=== PATIENT | female | born 1970 | race Caucasian/White ===

== ENCOUNTER → 2021-01-19 11:10 | Outpatient (CLI) | payer OTHER, SELFPAY ==
--- NOTE | ~2021-01-19 | CT_ITS ---
EXAMINATION: CTA chest PE protocol DATE: 01/19/2021 11:39 INDICATION: Dyspnea TECHNIQUE: Computed tomography angiography (CTA) of the chest was performed with 100 mL Omnipaque-350 intravenous contrast timed to evaluate the pulmonary arteries. Coronal maximum intensity projection 3D-reconstructions were created by the technologist. Automated exposure control and iterative reconst ruction technique were employed. Exam dose: 438.20 mGy-cm total exam DLP. COMPARISON: None. FINDINGS: There is diagnostic contrast enhancement of the pulmonary arteries and no evidence of pulmo nary embolism. No thoracic aortic aneurysm or dissection. Normal heart size. No hilar or mediastinal mass lesion or lymphadenopathy. No pericardial or pleural effusion. Normal morphology of the adrenal glands. Small sliding hiatal hernia. No pulmonary infiltrate or consolidation or pulmonary mass lesion. IMPRESSION: No evidence of pulmonary embolism Reviewed, dictated and finalized at [facility]. Reviewed, dictated and finalized at location [facility]. 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
[2021-01-19 11:29] LABS: Estimated Glomerular Filt Rate 59
== END ==
PROVIDERS: PCP Physician Assistant; Visit Provider Physician Assistant
DX: R06.00 Dyspnea, unspecified (principal)
CPT/HCPCS: 71275; Q9967

== ENCOUNTER → 2021-03-15 10:21 | Outpatient (CLI) | payer OTHER, SELFPAY ==
--- NOTE | ~2021-03-15 | MMUS_ITS ---
EXAMINATION: MM diagnostic prince BI w anaya, US breast LT limited HISTORY: Follow-up left breast mass TECHNIQUE: Additional 3-D tomosynthesis images of the breasts were performed and synthetic 2-D images were generated. CAD analysis was submitted and interpreted. High resolution limited left breast ultr asound was performed. COMPARISON: 11/12/2019 BREAST PARENCHYMAL COMPOSITION: Breast composed of scattered areas of fibroglandular density. FINDINGS: MAMMOGRAPHIC FINDINGS: There is a circumscribed mass in the lower outer quadrant of the left breast measuring 1 cm greatest dimension. There are no suspicious calcifications or architectural distortion. No mammographic eviden ce for malignancy in the right breast. ULTRASOUND: Limited left breast ultrasound: At 4:00, 4 cm from the nipple, there is an oval hypoechoic mass with circumscribed margins, parallel orientation, no significant posterior features measuring 11 x 7 x 7 m m, unchanged from prior study. IMPRESSION: 1. Stable benign-appearing left breast mass located at 4:00, 4 cm from the nipple measuring 11 mm max imum dimension. 2. Recommend 6 month follow-up targeted left breast ultrasound BI-RADS category 3, probably benign findings. Reviewed, dictated and finalized at location A. IMPRESSION: 1. Stable benign-appearing left breast mass located at 4:00, 4 cm from the nipp le measuring 11 mm maximum dimension. 2. Recommend 6 month follow-up targeted left breast ultrasound BI-RADS category 3, probably benign findings.
== END ==
PROVIDERS: PCP Physician Assistant; Visit Provider Physician Assistant
DX: D24.2 Benign neoplasm of left breast (principal); R92.8 Other abnormal and inconclusive findings on diagnostic imaging of breast
CPT/HCPCS: 76642; 77062; 77066; G0279

== ENCOUNTER → 2023-11-18 14:15 | Outpatient (CLI) | payer OTHER, SELFPAY ==
--- NOTE | ~2023-11-18 | MMUS_ITS ---
EXAMINATION: MM diagnostic prince BI w anaya, US breast LT limited HISTORY: 4:00 left breast mass reported on March 15, 2020 diagnostic left mammogram and limited left breast ultrasound TECHNIQUE: Bilateral ML, MLO and CC and spot left MLO and CC 3-D tomosynthesis images were performed and synthetic 2-D images were generated. CAD analysis was submitted and interpreted. High resolution targeted left 4:00 breast ultrasound was performed. COMPARISON: March 15, 2021 diagnostic left mammogram and limited left breast ultrasound 11/20/2019 diagnostic left mammogram and left breast ultrasound examination 11/12/2019 bilateral screening mammogram BREAST PARENCHYMAL COMPOSITION: There are scattered areas of fibroglandular density. FINDINGS: MAMMOGRAPHIC FINDINGS: There is an approximately 5.8 x 10 mm circumscribed opacity at mid to posterior depth in the lower ou ter quadrant left breast at approximately 4:00 position. This appears mammographically stable since A pril 2020. No suspicious mass, architectural distortion, malignant calcification, skin thickening or retraction of either breast is noted otherwise. ULTRASOUND: There is an approximately 8.7 x 6.4 x 13 mm parallel circumscribed hypoechoic lesion without internal vascularity or posterior shadowing at 4:00 4 cm from the nipple, stable or slightly increased in siz e since March 15, 2021 left breast ultrasound examination. IMPRESSION: 1. Benign finding similar 1 probable benign fibroadenoma, left breast, 4:00 2. Routine mammographic screening is recommended. BI-RADS Category 2: Benign finding(s). Reviewed, dictated and finalized at location A. 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 Benign finding similar 1 probable benign fibroadenoma, left breast, 4:00 2. Routine mammographic screening is recommended. BI-RADS Category 2: Benign finding(s).
== END ==
PROVIDERS: PCP Physician Assistant; Visit Provider Physician Assistant
DX: N60.02 Solitary cyst of left breast (principal); R92.8 Other abnormal and inconclusive findings on diagnostic imaging of breast
CPT/HCPCS: 76642; 77062; 77066; G0279

== ENCOUNTER 2024-09-07 01:13 | Day surgery (SDC) | payer OTHER, SELFPAY ==
[2024-08-18 13:09] VITALS: BMI 22.6
[2024-09-07 06:21] VITALS: BMI 22.6
[2024-09-07 06:25] VITALS: BP 129/80; PULSE 94; RESP 20; TEMP 35.8; O2SAT 100
--- NOTE | 2024-09-07 06:26 | SUR.PREOP ---
Pt's blood sugar 165 per dexcom
[2024-09-07] MEDS: LACTATED RINGERS 1,000 ML 150 ML IV CONT (06:36)
--- NOTE | 2024-09-07 06:47 | P.PNAN_ITS ---
Anes - Initial Pre Proc Eval Procedure: Operation Date: 09/07/24 07:30 Proposed Procedures p Screening Colonoscopy - Keven Fairbanks MD Date/Time: 09/07/24 06:47 Surgeon: Keven Fairbanks MD Pre Op Diagnosis: neoplasm screening Patient Data Age: 53 Gender: F Height: 1.63 m Weight: 60 kg Last Vital Signs Temp 35.8 C L 09/07/24 06:25 Pulse 94 09/07/24 06:25 Resp 20 09/07/24 06:25 BP 129/80 09/07/24 06:25 Pulse Ox 100 09/07/24 06:25 O2 Del Method Room Air 09/07/24 06:25 Allergies Allergy/AdvReac Type Severity Reaction Status Date / Time No Known Allergies Allergy Unknown Verified 09/07/24 06:20 Home Medications Medication Instructions Recorded Confirmed Type atorvastatin 10 mg tablet 10 mg PO DAILY 08/18/24 09/07/24 History insulin lispro 100 unit/mL 0.4 unit continuous subcutaneous 08/18/24 09/07/24 History subcutaneous solution (Humalog infusion DIRECTED U-100 Insulin) levothyroxine 100 mcg tablet 100 mcg PO DAILY 08/18/24 09/07/24 History lisinopril 5 mg tablet 5 mg PO DAILY 08/18/24 09/07/24 History tirzepatide 7.5 mg/0.5 mL 10 mg subcut WEEKLY 08/18/24 09/07/24 History subcutaneous pen injector (Mounjaro) Patient hx anesthesia problems: none Family hx anesthesia problems: none Results Review: All pre-operative results and documents have been reviewed as part of the pre- operative evaluation. [facility] Past Medical History Medical History (Updated 09/07/24 @ 06:47 by Jonah Wetzel MD) Diabetes Hypothyroidism Social History Social History Smoking status: Never smoker Alcohol intake: never Alcohol use details: Socially Substance use: never Substance use type: does not use Living arrangements: with family Spiritual care concerns: No Anes - Eval Final PreProcedure Day of Procedure 09/07/24 06:47 Patient weight: normal Heart: regular rate and rhythm Lungs: clear to auscultation Airway: Mallampati scale class II Neurological: alert and oriented Last oral intake: >/= 8 hours ASA classification: II Emergent: no Anesthetic plan: proceed Anesthesia type and monitoring: general GIVS and standard monitoring Results Review: All pre-operative results and documents have been reviewed as part of the pre- operative evaluation. Informed Consent: The patient's anesthetic plan and its attendant risks and benefits were discussed with the patient/family/POA. Questions were solicited and answers provided to the satisfaction of the patient/family/POA.
--- NOTE | 2024-09-07 07:17 | PM.HPGS ---
History of Present Illness History of Present Illness Consent: Risks, benefits, and alternatives have been discussed and questions answered. Patient agrees to proceed with procedure. Chief complaint: neoplasm screening Narrative: Lyndon Raymond is a 53 year old female here for colonoscopy, last one 6 years ago, brother had colon cancer Review of Systems Review of Systems: All systems reviewed & are unremarkable except as noted in HPI and below PMFSH Past Medical History Medical History (Updated 09/07/24 @ 07:18 by Keven Fairbanks MD) Diabetes Family history of colon cancer Hypothyroidism Social History Social History Smoking status: Never smoker Alcohol intake: never Alcohol use details: Socially Substance use: never Substance use type: does not use Living arrangements: with family Spiritual care concerns: No Meds Home Medications and Allergies Home Medications Medication Instructions Recorded Confirmed Type atorvastatin 10 mg tablet 10 mg PO DAILY 08/18/24 09/07/24 History insulin lispro 100 unit/mL 0.4 unit continuous subcutaneous 08/18/24 09/07/24 History subcutaneous solution (Humalog infusion DIRECTED U-100 Insulin) levothyroxine 100 mcg tablet 100 mcg PO DAILY 08/18/24 09/07/24 History lisinopril 5 mg tablet 5 mg PO DAILY 08/18/24 09/07/24 History tirzepatide 7.5 mg/0.5 mL 10 mg subcut WEEKLY 08/18/24 09/07/24 History subcutaneous pen injector (Mounjaro) Allergies Allergy/AdvReac Type Severity Reaction Status Date / Time No Known Allergies Allergy Unknown Verified 09/07/24 06:20 Vital Signs Vital Signs - 24 hr 09/07/24 06:25 Temperature 96.4 F L Pulse Rate 94 Respiratory Rate 20 Blood Pressure 129/80 Pulse Oximetry 100 Oxygen Delivery Room Air Exam Const: General: comfortable and no acute distress HENMT: Face/Nose/Sinus: Normal nares present Eyes: General: appearance normal, both eyes and all related structures Neck: Neck: no JVD Resp: Auscultation: clear to auscultation bilaterally Cardio: Rate: regular rate Rhythm: regular rhythm GI: Inspection: non-distended GI Palp: Yes Soft to palpation Skin: General skin exam: normal color Neuro: General: gait normal Speech: normal speech Extrem: General: normal to inspection Psych: Mental Status: mental status grossly normal Assessment and Plan Assessment and plan (1) Family history of colon cancer: Code(s): Z80.0 - Family history of malignant neoplasm of digestive organs Status: Acute Assessment and Plan: colonoscopy
[2024-09-07 07:46] VITALS: BP 105/51; PULSE 79; RESP 20; O2SAT 99
[2024-09-07 07:56] VITALS: BP 101/68; PULSE 74; RESP 18; O2SAT 100
[2024-09-07 08:06] VITALS: BP 109/70; PULSE 74; RESP 20; O2SAT 100
--- NOTE | 2024-09-07 08:16 | SUR.PHASEII ---
PT'S SUGAR PER DEXOM 123
== END 2024-09-07 08:16 | disposition home or self-care (01) ==
PROVIDERS: PCP Physician Assistant; Referring Provider Physician Assistant; Visit Provider Internal Medicine Gastroenterology
PROC: 0DJD8ZZ Inspection of Lower Intestinal Tract, Via Natural or Artificial Opening Endoscopic (ICD-10-PCS; CPT 45378; principal; 2024-09-07 07:30)
DX: Z12.11 Encounter for screening for malignant neoplasm of colon (principal); K64.8 Other hemorrhoids; E11.9 Type 2 diabetes mellitus without complications; E03.9 Hypothyroidism, unspecified; Z79.4 Long term (current) use of insulin; Z79.85 Long-term (current) use of injectable non-insulin antidiabetic drugs; Z80.0 Family history of malignant neoplasm of digestive organs
CPT/HCPCS: 45378; J2704; J7120

== ENCOUNTER 2025-08-05 01:15 | Day surgery (SDC) | payer OTHER, SELFPAY ==
[2025-07-27 14:27] VITALS: BMI 23.3
--- NOTE | 2025-08-05 09:22 | SUR.PREOP ---
Pt blood sugar 157 per continuous glucose monitor.
[2025-08-05 09:23] VITALS: BP 106/73; PULSE 67; RESP 18; TEMP 36.2; O2SAT 100
[2025-08-05] MEDS: LACTATED RINGERS 1,000 ML 150 ML IV CONT (09:36)
--- NOTE | 2025-08-05 09:42 | WPDANESEPPF ---
Anes - Initial Pre Proc Eval Procedure: Operation Date: 08/05/25 10:30 Proposed Procedures p Esophagogastroduodenoscopy - Keven Fairbanks MD Date/Time: 08/05/25 09:42 Surgeon: Keven Fairbanks MD Pre Op Diagnosis: Vitamin B12 deficiency anemia due to intrinsic fac Patient Data Age: 54 Gender: F Height: 1.63 m Weight: 62.9 kg Last Vital Signs Temp 97.1 F L 08/05/25 09:23 Pulse 67 08/05/25 09:23 Resp 18 08/05/25 09:23 BP 106/73 08/05/25 09:23 Pulse Ox 100 08/05/25 09:23 O2 Del Method Room Air 08/05/25 09:23 Allergies Allergy/AdvReac Type Severity Reaction Status Date / Time No Known Allergies Allergy Unknown Verified 08/05/25 09:22 Home Medications ?Medication ?Instructions ?Recorded ?Confirmed ?Type atorvastatin 10 mg tablet 10 mg PO DAILY 08/18/24 07/27/25 History insulin lispro 100 unit/mL 0.4 unit continuous subcutaneous 08/18/24 07/27/25 History subcutaneous solution (Humalog infusion DIRECTED U-100 Insulin) levothyroxine 100 mcg tablet 100 mcg PO DAILY 08/18/24 07/27/25 History lisinopril 5 mg tablet 5 mg PO DAILY 08/18/24 07/27/25 History tirzepatide 7.5 mg/0.5 mL 10 mg subcut WEEKLY 08/18/24 07/27/25 History subcutaneous pen injector (Mounjaro) estradiol 0.05 mg/24 hr semiweekly 1 patch transdermal 07/27/25 History transdermal patch Patient hx anesthesia problems: none Family hx anesthesia problems: none Results Review: All pre-operative results and documents have been reviewed as part of the pre-operative evaluation. [facility] Past Medical History Medical History (Updated 06/16/25 @ 15:59 by Keven Fairbanks MD) Pernicious anemia Family history of colon cancer Hypothyroidism Diabetes Social History Social History Smoking status: Never smoker Alcohol intake: never Substance use: never Substance use type: does not use Living arrangements: with family Spiritual care concerns: No Anes - Eval Final PreProcedure Day of Procedure 08/05/25 09:42 Patient weight: normal Heart: regular rate and rhythm Lungs: clear to auscultation Airway: Mallampati scale class II Neurological: alert and oriented Last oral intake: >/= 8 hours ASA classification: III Emergent: no Anesthetic plan: proceed Anesthesia type and monitoring: general GIVS and standard monitoring Results Review: All pre-operative results and documents have been reviewed as part of the pre-operative evaluation. Informed Consent: The patient's anesthetic plan and its attendant risks and benefits were discussed with the patient/family/POA. Questions were solicited and answers provided to the satisfaction of the patient/family/POA.
--- NOTE | 2025-08-05 09:55 | PM.HPGS ---
History of Present Illness History of Present Illness Consent: Risks, benefits, and alternatives have been discussed and questions answered. Patient agrees to proceed with procedure. 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, also noted to have chronic low B12, blood work suggestive of possible pernicious anemia (+ intrinsic factor but normal parietal cell ab) Review of Systems Review of Systems: All systems reviewed & are unremarkable except as noted in HPI and below PMFSH Past Medical History Medical History (Updated 06/16/25 @ 15:59 by Keven Fairbanks MD) Pernicious anemia Family history of colon cancer Hypothyroidism Diabetes Social History Social History Smoking status: Never smoker Alcohol intake: never Substance use: never Substance use type: does not use Living arrangements: with family Spiritual care concerns: No Meds Home Medications and Allergies Home Medications ?Medication ?Instructions ?Recorded ?Confirmed ?Type atorvastatin 10 mg tablet 10 mg PO DAILY 08/18/24 07/27/25 History insulin lispro 100 unit/mL 0.4 unit continuous subcutaneous 08/18/24 07/27/25 History subcutaneous solution (Humalog infusion DIRECTED U-100 Insulin) levothyroxine 100 mcg tablet 100 mcg PO DAILY 08/18/24 07/27/25 History lisinopril 5 mg tablet 5 mg PO DAILY 08/18/24 07/27/25 History tirzepatide 7.5 mg/0.5 mL 10 mg subcut WEEKLY 08/18/24 07/27/25 History subcutaneous pen injector (Mounjaro) estradiol 0.05 mg/24 hr semiweekly 1 patch transdermal 07/27/25 History transdermal patch Allergies Allergy/AdvReac Type Severity Reaction Status Date / Time No Known Allergies Allergy Unknown Verified 08/05/25 09:22 Vital Signs Vital Signs - 24 hr 08/05/25 09:23 Temperature 97.1 F L Pulse Rate 67 Respiratory Rate 18 Blood Pressure 106/73 Pulse Oximetry 100 Oxygen Delivery Room Air Exam Const: General: comfortable and no acute distress HENMT: Face/Nose/Sinus: Normal nares present Eyes: General: appearance normal, both eyes and all related structures Neck: Neck: no JVD Resp: Auscultation: clear to auscultation bilaterally Cardio: Rate: regular rate Rhythm: regular rhythm GI: Inspection: non-distended GI Palp: Yes Soft to palpation Skin: General skin exam: normal color Neuro: Speech: normal speech Extrem: General: normal to inspection Psych: Mental Status: mental status grossly normal Assessment and Plan Assessment and plan (1) Pernicious anemia: Code(s): D51.0 - Vitamin B12 deficiency anemia due to intrinsic factor deficiency Status: Acute Assessment and Plan: egd with bx
--- NOTE | 2025-08-05 10:04 | S_PTH ---
PATIENT: Lyndon Raymond LOC: [facility]#:[id number] AGE/SX: 54/F ROOM: RE08/05/[address]: Keven Fairbanks MD : 1970 BED: DIS: 08/05/2025 SPEC #: [id number] RECD: 08/05/25 10:32 STATUS: KAYLYN RENolan #: [id number] HOLDEN: 08/05/25 10:[address]: Keven Fairbanks DEPT: [facility] Surgical RECD BY: Christine Calvert ENTERED: 08/05/25 10:32 SP TYPE: Surgical OTHR DR: Marisa Mason, PA-C Tissues: A - Gastric Biopsy B - Small Bowel Bx Procedures: Hematoxylin and Eosin Stain Gross and Microscopic Level 4 Synaptoshysin Chromogranin Stain H.Pylori
[2025-08-05 10:06] VITALS: BP 89/54; PULSE 75; RESP 23; O2SAT 100
[2025-08-05 10:16] VITALS: BP 95/57; PULSE 75; RESP 23; O2SAT 99
[2025-08-05 10:26] VITALS: BP 105/69; PULSE 76; RESP 23; O2SAT 100
== END 2025-08-05 10:40 | disposition home or self-care (01) ==
PROVIDERS: PCP Physician Assistant; Referring Provider Internal Medicine Gastroenterology; Visit Provider Internal Medicine Gastroenterology
PROC: 0DJ08ZZ Inspection of Upper Intestinal Tract, Via Natural or Artificial Opening Endoscopic (ICD-10-PCS; CPT 43239; principal; 2025-08-05 10:30)
DX: D51.0 Vitamin B12 deficiency anemia due to intrinsic factor deficiency (principal); K29.40 Chronic atrophic gastritis without bleeding; E11.9 Type 2 diabetes mellitus without complications
CPT/HCPCS: 43239; 82948; 88305; 88342; J2003; J2704; J7120

== ENCOUNTER 2025-09-30 09:51 | Outpatient (CLI) | payer OTHER, SELFPAY ==
--- NOTE | ~2025-09-30 | US_ITS ---
US right upper quadrant Indication: Abn bilirubin test Comparison: None Technique: Friedman-scale and color Doppler images were obtained. Findings: LIVER: Unremarkable, liver contours intact, no lesions. Normal echogenicity. . GALLBLADDER/BILIARY: Post cholecystectomy. CBD 8 mm. Grover sign negative. PANCREAS: Pancreas limited by bowel gas. Right Kidney: Right kidney 9.8 cm, normal. Impression: No acute abnormality. Reviewed, dictated and finalized at location P. Impression: No acute abnormality.
== END 2025-09-30 09:52 | disposition home or self-care (01) ==
LOC: MICIMG 09:51
PROVIDERS: PCP Physician Assistant; Visit Provider Physician Assistant
DX: R79.89 Other specified abnormal findings of blood chemistry (principal)
CPT/HCPCS: 76705